=== PATIENT | female | born 1995 | race Caucasian/White ===

== ENCOUNTER → 2022-07-16 | Outpatient (CLI) | payer BC ==
--- NOTE | 2022-07-16 18:24 | CT ---
EXAMINATION TYPE: CT abdomen pelvis w con DATE OF EXAM: 07/16/2022 HISTORY: left side abd pain CT DLP: 503.2mGycm Automated Exposure Control for Dose Reduction was Utilized. CONTRAST: CT scan of the abdomen and pelvis is performed with IV Contrast, patient injected with 100m l mL of Isovue 300. COMPARISON: None. FINDINGS: LUNG BASES: No significant abnormality is appreciated. LIVER/GB: No significant abnormality is appreciated. PANCREAS: No significant abnormality is seen. SPLEEN: No significant abnormality is seen. ADRENALS: No significant abnormality is seen. KIDNEYS: No significant abnormality is seen. BOWEL: No significant abnormality is seen. Colonic stool volume is noted to the prominent. UTERUS/ADNEXA/CUL-DE-SAC: Uterus is anteverted with IUD in place. Small volume of simple appearing cu l-de-sac fluid, likely physiologic. LYMPH NODES: No greater than 1cm abdominal or pelvic lymph nodes are appreciated. OSSEOUS STRUCTURES: No significant abnormality is seen. VASCULAR: No significant additional abnormality is seen. IMPRESSION: No acute process, although colonic stool volume is prominent.
== END | disposition home or self-care (01) ==
LOC: RADCTMAIN 15:55
PROVIDERS: ATTEND Family Medicine
DX: R10.9 Unspecified abdominal pain (principal)
CPT/HCPCS: 74177; Q9967

== ENCOUNTER → 2023-04-02 | Outpatient (CLI) | payer BC ==
--- NOTE | 2023-04-02 07:45 | USB ---
Reason for Exam: Clinical finding. Technique: Method: Targeted. Findings: The upper outer quadrant of the right breast, the area of palpable concern of the right breast and the axilla of the right breast were scanned. At the palpable abnormality 10:00 position 10 cm from nipple there is a oval hypoechoic area measuring 0.7 x 0 point for by 0.4 cm. This has a fatty hilum with vascular flow. Findings are compatible with a lymph node. Clinical management is recommended. Follow up exams can be performed if there is clinical change. In the absence of suspicious clinical findings, screening mammography performed on schedule. Overall Assessment: Benign, BI-RAD 2 Management: Screening Mammogram of both breasts at age 42. A clinical breast exam by your physician is recommended on an annual basis and results should be correlated with mammographic findings. This exam should not preclude additional follow-up of suspicious palpable abnormalities. Results were given to the patient verbally at the time of exam. Electronically signed and approved by: Duong Montero D.O. Radiologis
== END | disposition home or self-care (01) ==
LOC: RADUSWWP 07:19
PROVIDERS: ATTEND Family Medicine
DX: N63.10 Unspecified lump in the right breast, unspecified quadrant (principal)

== ENCOUNTER → 2023-06-09 | Outpatient (CLI) | payer BC ==
--- NOTE | 2023-06-09 17:24 | US ---
EXAMINATION TYPE: Transabdominal DATE OF EXAM: 06/09/2023 4:25 PM COMPARISON: NONE CLINICAL INDICATION: Female, 28 years old with history of O99.891 OTH DISEASES AND CONDITIONS COMPLIC ATING P; Cramping; HX KIMBERLY EXAM PERFORMED: Transvaginal (TV) and Transabdominal (TA) EXAM MEASUREMENTS: GESTATIONAL AGE / DATING Physician Established: (7 weeks/6 days) EDC: 01/20/2024 Dates by LMP: ( weeks/ days) EDC: Dates by First Scan: (7 weeks/6 days) EDC: 01/20/2024 Dates by Current Scan for: (8 weeks/1 days) EDC: 01/18/2024 MATERNAL ANATOMY Uterus: 9.9 x 5.7 x 6.7 cm Right Ovary: 3.7 x 1.5 x 3.0 cm Left Ovary: 2.4 x 1.2 x 1.1 cm Post CDS / Adnexa: WNL Presence of free fluid: WNL Presence of corpus luteal cyst: Right ovary Presence of subchorionic bleed: 1.8 x 1.0 x 1.5 cm left uterine fundus GESTATION / SURVEY CRL: 1.61 (8 weeks/1 days) MSD: NA ( weeks/ days) Yolk Sac (normal less than 6mm): 0.3 Heart Rate: 160 bpm Rhythm: Normal IUP: Viable IUP Nuchal Translucency 10-14wks (normal less than 3mm): NA Age Appropriate Anatomy Cord Insertion: NA Limbs: NA Calvarium: NA Date of LMP: March Beta HcG (if available): Not available at this time IMPRESSION: Single live intrauterine with calculated ultrasound age of 8 weeks 1 day crown rump length.
== END | disposition home or self-care (01) ==
LOC: RADUSWWP 16:03
PROVIDERS: ATTEND Family Medicine
DX: O99.891 Other specified diseases and conditions complicating pregnancy (principal); Z3A.09 9 weeks gestation of pregnancy
CPT/HCPCS: 76801; 76817

== ENCOUNTER 2023-12-08 08:35 | Outpatient (CLI) | payer BC ==
[2023-12-08 10:10] VITALS: BP 129/76; PULSE 78; RESP 16; TEMP 98.1
--- NOTE | 2024-01-16 02:04 | P.MSEPDOC ---
Presenting Problems - Arrival Data Date of Arrival on Unit: 12/08/23 Time of Arrival on Unit: 08:35 Mode of Transport: Ambulatory - Complaint OB-Reason for Admission/Chief Complaint: Elevated Blood Pressure Comment: bp at home 160/100 Medical History - Information : 2 Para: 1 Term: 1 : 0 Abortions: Spontaneous or Elective: 0 Number of Living Children: 1 - Gestational Age Gestational Age by JUAN (wks/days): 33 Weeks and 3 Days Review of Systems - Review of Systems Constitutional: No problems Breast: No problems ENT: No problems Cardiovascular: No problems Respiratory: No problems Gastrointestinal: No problems Genitourinary: No problems Musculoskeletal: No problems Neurological: No problems Skin: No problems Vital Signs - Temperature Temperature: 98.1 F Temperature Source: Temporal Artery Scan - Pulse Right Sitting Pulse Rate: 78 Pulse Assessment Method: Automatic Cuff - Respirations Respiratory Rate: 16 Oxygen Delivery Method: Room Air O2 Sat by Pulse Oximetry: 98 - Blood Pressure Right Arm Blood Pressure: 129/76 Blood Pressure Mean: 93 Blood Pressure Source: Automatic Cuff Medical Screen Scoring - Cervical Exam Dilation (cm): 0 Membranes: Intact - Uterine Contractions Intensity: Mild Resting: Soft to palpation - Assessment - Baby A Baseline FHR: 140 Heart Rate - NICHD Category: Category I (Normal) NST: Reactive Physician Notification - Physician Notified Physician Notified Date: 12/08/23 Physician Notified Time: 09:44 Physician: Sergio Gonzalez New Order Received: Yes (d/c home if cervix is closed) Maternal Triage Index - Urgent/Priority 2 Urgent Priority 2: Yes Provider Notified: Sergio Gonzalez Provider Notified Time: 09:44 Criteria Met for Priority 2: pt c/o elevated bp at home, 160/100, no s/sx preeclampsia, all bps in triage wnl, irregular contractions noted on monitor, pt denies pain or fleeing contractions, but states sometimes feels tightening in abd. vag exam closed/thick/high Disposition - Disposition OB Disposition: Discharge to home Discharge Date: 12/08/23 Discharge Time: 09:52 I agree with the RN Medical Screening Exam: Yes Physician's MSE Comment: I have neither seen nor examined the patient. Case reviewed; plan agreed upon as documented in EMR&OBIX.: Yes Diagnosis: RELATED CONDITIONS, UNSPECIFIED, THIRD TRIMESTER
== END 2023-12-08 09:52 | disposition home or self-care (01) ==
LOC: FBPOP 08:35
PROVIDERS: ATTEND Obstetrics & Gynecology
CPT/HCPCS: 59025; 99213

== ENCOUNTER 2023-12-14 14:32 | Outpatient (CLI) | payer BC ==
[2023-12-14] MEDS: BETAMET ACET-BETAMETH SOD PHOS 6 MG/ML MDV IM SCH (15:13)
[2023-12-14 15:27] LABS: Basophils % (A) 0 %; Eosinophils # (A) 0.1 k/uL (0-0.7); Eosinophils % (A) 1 %; Lymphocytes # (A) 1.2 k/uL (1.0-4.8); Lymphocytes % (A) 13 %; MCHC 33.4 g/dL (31.0-37.0); MCV 89.8 fL (80.0-100.0); Mean Platelet Volume 8.6; Monocytes # (A) 0.4 k/uL (0-1.0); Monocytes % (A) 4 %; Neutrophils # (A) 7.8 k/uL (1.3-7.7); Neutrophils % (A) 81 %; Platelet Count 262 k/uL (150-450); RBC 4.01 m/uL (3.80-5.40); RDW 12.5 % (11.5-15.5); WBC 9.7 k/uL (3.8-10.6)
[2023-12-14 15:56] LABS: ALT 10 U/L (4-34); AST 18 U/L (14-36); African American GFR (CKD) >90 (>60 ml/min/1.73 sqM); Blood Urea Nitrogen 10 mg/dL (7-17); LDH 186 U/L (120-246); Non-African American GFR(CKD) >90 (>60 ml/min/1.73 sqM); Uric Acid 3.2 mg/dL (3.7-7.4)
[2023-12-14 18:51] VITALS: BP 140/73; PULSE 72; RESP 17; TEMP 97.3
== END 2023-12-14 16:40 | disposition home or self-care (01) ==
LOC: FBPOP 14:32
PROVIDERS: ATTEND Obstetrics & Gynecology
DX: O13.9 Gestational [pregnancy-induced] hypertension without significant proteinuria, unspecified trimester (principal); Z3A.34 34 weeks gestation of pregnancy
CPT/HCPCS: 59025; 99215; 96372; 36415; 82565; 83615; 84450; 84460; 84520; 84550; 85025; J0702

== ENCOUNTER 2023-12-15 15:16 | Outpatient (CLI) | payer BC ==
[2023-12-15 15:24] VITALS: BP 146/80; PULSE 69; RESP 18; TEMP 97.6
[2023-12-15] MEDS: BETAMET ACET-BETAMETH SOD PHOS 6 MG/ML MDV IM SCH (15:33)
--- NOTE | 2024-01-16 02:20 | P.MSEPDOC ---
Presenting Problems - Arrival Data Date of Arrival on Unit: 12/15/23 Time of Arrival on Unit: 15:16 Mode of Transport: Ambulatory - Complaint OB-Reason for Admission/Chief Complaint: Celestone Injection Comment: second dose Medical History - Information : 2 Para: 1 Term: 1 : 0 Abortions: Spontaneous or Elective: 0 Number of Living Children: 1 - Gestational Age Gestational Age by JUAN (wks/days): 34 Weeks and 3 Days Review of Systems - Review of Systems Constitutional: No problems Breast: No problems ENT: No problems Cardiovascular: No problems Respiratory: No problems Gastrointestinal: No problems Genitourinary: No problems Musculoskeletal: No problems Neurological: No problems Skin: No problems Vital Signs - Temperature Temperature: 97.6 F Temperature Source: Temporal Artery Scan - Pulse Pulse Oximetery Pulse Rate: 69 Pulse Assessment Method: Pulse Oximetry - Respirations Respiratory Rate: 18 Oxygen Delivery Method: Room Air O2 Sat by Pulse Oximetry: 99 - Blood Pressure Right Arm Blood Pressure: 146/80 Blood Pressure Mean: 102 Blood Pressure Source: Automatic Cuff Medical Screen Scoring - Cervical Exam Membranes: Intact Physician Notification - Physician Notified Physician Notified Date: 12/15/23 Physician Notified Time: 15:46 Physician: Sergio Gonzalez Order Received: Yes (discharge home.) Maternal Triage Index - Maternal Triage Index Presenting for scheduled procedure w/no complaint: No - Stat/Priority 1 Stat Priority 1: No - Urgent/Priority 2 Urgent Priority 2: No - Prompt/Priority 3 Prompt Priority 3: No - Non-Urgent/Priority 4 Non-Urgent Priority 4: No - Scheduled/Requesting Priority 5 Scheduled/Requesting Priority 5: Yes Criteria Met for Priority 5: second dose of celestone IM injection. Disposition - Disposition OB Disposition: Discharge to home Discharge Date: 12/15/23 Discharge Time: 15:46 I agree with the RN Medical Screening Exam: Yes Physician's MSE Comment: I have neither seen nor examined the patient. Case reviewed; plan agreed upon as documented in EMR&OBIX.: Yes Diagnosis: RELATED CONDITIONS, UNSPECIFIED, THIRD TRIMESTER
== END 2023-12-15 15:46 | disposition home or self-care (01) ==
LOC: FBPOP 15:16
PROVIDERS: ATTEND Obstetrics & Gynecology
CPT/HCPCS: 96372; 99213

== ENCOUNTER 2023-12-19 01:51 | Inpatient (IN) | payer BC ==
[2023-12-19] MEDS ORDERED: TRANEXAMIC 1,000 MG/100ML-NACL 1,000 MG in EMPTY BAG 1 BAG IV PRN (02:29)
[2023-12-19] MEDS ORDERED: OXYTOCIN 10 UNIT/ML 1 ML VIAL IM PRN (02:29)
[2023-12-19] MEDS ORDERED: miSOPROStoL 200 MCG TAB PO PRN (02:29)
[2023-12-19] MEDS ORDERED: LIDOCAINE 0.5% (PF) 5 MG/ML (50 ML SDV) SQ PRN (02:29)
[2023-12-19] MEDS ORDERED: TERBUTALINE 1 MG/ML VIAL SQ PRN (02:29)
[2023-12-19] MEDS ORDERED: METHYLERGONOVINE 0.2 MG/ML 1 ML AMP IM PRN (02:29)
[2023-12-19] MEDS ORDERED: miSOPROStoL 200 MCG TAB RECTAL PRN (02:29)
[2023-12-19] MEDS ORDERED: CARBOPROST TROMETHAMINE 250 MCG/ML 1 ML AMP IM PRN (02:29)
[2023-12-19] MEDS: LACTATED RINGERS 1,000 ML IV SCH (02:41)
[2023-12-19] MEDS: PENICILLIN G POTASSIUM 5,000,000 UNIT in DEXTROSE 5% IN WATER 100 ML IVPB ONE (02:56)
[2023-12-19 03:03] LABS: Basophils % (A) 0 %; Eosinophils # (A) 0.2 k/uL (0-0.7); Eosinophils % (A) 2 %; HCT 35.4 % (34.0-46.0); HGB 11.9 gm/dL (11.4-16.0); Lymphocytes % (A) 17 %; MCH 30.4 pg (25.0-35.0); MCHC 33.6 g/dL (31.0-37.0); MCV 90.6 fL (80.0-100.0); Mean Platelet Volume 8.8; Monocytes # (A) 0.5 k/uL (0-1.0); Monocytes % (A) 4 %; Neutrophils # (A) 8.5 k/uL (1.3-7.7); Neutrophils % (A) 75 %; Platelet Count 262 k/uL (150-450); RBC 3.91 m/uL (3.80-5.40); RDW 12.4 % (11.5-15.5); WBC 11.4 k/uL (3.8-10.6)
[2023-12-19 03:27] LABS: INR 0.8 (<1.2); Partial Thromboplastin Time 23.1 sec (22.0-30.0); Prothrombin Time 9.3 sec (10.0-12.5)
[2023-12-19] MEDS ORDERED: fentaNYL (PF) 50 MCG/ML 5 ML AMP ONE (05:06)
[2023-12-19] MEDS ORDERED: SODIUM CHLORIDE 0.9% 250 ML BAG ONE (05:06)
[2023-12-19] MEDS ORDERED: ROPIVACAINE 5 MG/ML 30 ML VIAL ONE (05:06)
[2023-12-19] MEDS: ACETAMINOPHEN TAB 500 MG TAB PO PRN (06:01)
[2023-12-19] MEDS: OXYTOCIN 30 UNITS/500 ML NS 30 UNIT in SALINE 1 500ML.BAG IV SCH (06:38)
[2023-12-19] MEDS: PENICILLIN G POTASSIUM 2,500,000 UNIT in DEXTROSE 5% IN WATER 100 ML IVPB SCH (07:10)
--- NOTE | 2023-12-19 08:17 | P.HPOB ---
History of Present Illness H&P Date: 12/19/23 Chief Complaint: Leaking of fluid Ms. Chiang is a 28 year old at 35 weeks and 0 days with EDC of 01/23/2024 by LMP consistent with 9 week US who presents with leaking of fluid and positive amnisure in triage. She is also jesus and cervical exam is 3/80/-2. The has been complicated by gestational hypertension for which she was started on Labetalol 100mg BID. She has also undergone weekly surveillance throughout the third trimester. The patient did receive a dose of BMZ approximately 4 weeks ago for labor. Obstetric history: 1 PTVD at 36 weeks, indued for gestational hypertension work-up: blood type A positive, antibody screen negative, rubella immune, VDRL non-reactive, HBsAg negative, HIV negative, HCV non-reactive, gonorrhea negative, chlamydia negative. 1 hour GTT not completed. GBS unknown given she is only 35 weeks. Past Medical History Additional Past Medical History / Comment(s): hashimotos History of Any Multi-Drug Resistant Organisms: None Reported Additional Past Surgical History / Comment(s): neck sugrery x2 for benign tumor Past Anesthesia/Blood Transfusion Reactions: No Reported Reaction Past Psychological History: No Psychological Hx Reported Smoking Status: Never smoker Past Drug Use History: None Reported Medications and Allergies Home Medications Medication Instructions Recorded Confirmed Type Aspirin 81 mg PO DAILY 12/08/23 12/19/23 History FLUoxetine HCL [PROzac] 20 mg PO DAILY 12/08/23 12/19/23 History Levothyroxine Sodium 25 mcg PO DAILY 12/08/23 12/19/23 History Vit No.179/Iron/Folic 1 tab PO DAILY 12/08/23 12/19/23 History [ Tablet] Labetalol [Trandate] 100 mg PO BID 12/15/23 12/19/23 History Allergies Allergy/AdvReac Type Severity Reaction Status Date / Time No Known Allergies Allergy Verified 12/15/23 15:21 Exam Vital Signs Temp Pulse Resp BP Pulse Ox 12/19/23 02:29 96.6 F L 97 16 146/77 97 12/19/23 01:52 96.6 F L 99 16 146/77 97 Intake and Output 12/18/23 12/19/23 12/19/23 22:59 06:59 14:59 Other: # Voids 1 Weight 99.79 kg Focused physical exam is performed. This is a healthy-appearing in no apparent distress. Breathing is non-labored. Abdomen is gravid and non-tender. Most recent cervical exam is 5/80/-2 per OB RN. Extremities non-tender and non-edematous. heart tones are Category I and tocometer is graphing contractions every 2-4 minutes. Results Result Diagrams: 12/19/23 02:30 Abnormal Lab Results - Last 24 Hours (Table) 12/19/23 12/19/23 Range/Units 02:30 02:30 WBC 11.4 H (3.8-10.6) k/uL Neutrophils # 8.5 H (1.3-7.7) k/uL PT 9.3 L (10.0-12.5) sec Assessment and Plan Assessment: 28 year old at 35 weeks and 0 days with PPROM, in labor Plan: Admit, clear liquid diet, epidural prn, pitocin prn if contractions space out, PCN G for GBS ppx, s/p BMZ ~4 weeks ago for PTL, continuous EFM and tocometer. Anticipate vaginal delivery.
[2023-12-19] MEDS ORDERED: LIDOCAINE (PF) 10 MG/ML 2 ML VIAL SQ PRN (09:34)
[2023-12-19] MEDS ORDERED: SUCROSE 24% 2 ML AMP PO PRN (09:34)
[2023-12-19] MEDS ORDERED: ACETAMINOPHEN 40 MG/1.25 ML ORAL.SYRG PO PRN (09:34)
[2023-12-19] MEDS ORDERED: EPINEPHrine 1 MG/ML (MDV) 30 ML VIAL TOPICAL PRN (09:34)
--- NOTE | 2023-12-19 09:34 | P.PROBDLV ---
Vaginal Delivery Note - . Vaginal Delivery Note: DATE OF SERVICE: 12/19/2023 PROCEDURE: Normal Vaginal Delivery ATTENDING: Dr. Isabelle Zamudio MD ESTIMATED BLOOD LOSS: 150 mL FINDINGS: VMI, Apgars 9/9. Weight 6 pounds and 3 ounces (2815 grams) PROCEDURE: Ms. Chiang is a 28 year old at 35 weeks presenting to labor and delivery for PPROM. The has been complicated by labor for which she received steroids approximately 1 month ago. For further details, please review the admitting H&P. PCN G was given for GBS ppx. The patient was completely dilated at 854. She pushed effectively with Category I heart tones. A viable male infant was delivered at 916. The was placed on the maternal abdomen and bulb suctioned. The was noted to be spontaneously crying. Cord was clamped and cut after a 60-second delay. The infant was handed off to the pediatric team. Placenta was delivered whole with gentle cord traction at 918. Oxytocin was started to facilitate uterine tone. Uterine fundus was found to be firm and below the umbilicus upon fundal massage. Thorough examination of the cervix, vagina, periurethral area, and perineum revealed no lacerations. The patient is stable and allowed to begin the bonding process.
[2023-12-20] MEDS: IBUPROFEN 600 MG TAB PO PRN (05:40)
--- NOTE | 2023-12-20 08:56 | P.PNOBGVD ---
Subjective - Subjective Principal diagnosis: s/p vaginal delivery Interval history: The patient is doing well this morning and had no acute events overnight. She has no complaints this morning. She reports minimal lochia, passing flatus, voiding without difficulty, ambulating, and eating/drinking without nausea or vomiting. She is her without difficulty. She denies chest pain, shortness of breathing, fevers, or chills overnight. She denies pain or swelling in the legs. Patient reports: Reports appetite normal, Reports voiding normally, Reports pain well controlled, Reports ambulating normally : doing well, other (in nursery for prematurity) Objective - Latest Vital Signs Latest vital signs: Vital Signs Temp Pulse Resp BP 12/20/23 08:00 98.2 F 85 16 138/88 12/20/23 03:57 98.3 F 77 18 120/58 12/19/23 21:37 98.6 F 77 18 128/78 12/19/23 13:37 98.2 F 92 16 143/75 12/19/23 11:37 65 16 141/74 12/19/23 11:21 65 16 133/75 12/19/23 11:04 77 16 144/78 12/19/23 10:52 65 16 139/73 12/19/23 10:37 65 16 134/61 12/19/23 10:22 68 16 136/76 12/19/23 10:07 72 16 132/59 12/19/23 09:52 71 16 144/67 12/19/23 09:37 67 16 139/67 - Exam Extremities: Present: normal Abdomen: Present: normal appearance, soft Uterus: Present: normal, firm Assessment and Plan Assessment: 28 year old now PPD#1 s/p after PPROM Plan: 1. . Meeting all milestones appropriately. 2. Viable male . In nursery for prematurity. Will need circumcision once cleared by peds. 3. Scattered elevated BPs 140s/90. Continue to monitor. Dispo: Anticipate discharge home tomorrow if BPs stable.
[2023-12-20] MEDS ORDERED: HYDROCORTISONE 2.5% RECTAL CREAM 30 GM TUBE RECTAL PRN (09:56)
[2023-12-20] MEDS ORDERED: LANOLIN CREAM 1 GM TUBE TOPICAL PRN (09:56)
[2023-12-20] MEDS ORDERED: diphenhydrAMINE 25 MG CAP PO PRN (09:56)
[2023-12-20] MEDS ORDERED: BENZOCAINE/MENTHOL SPRAY 1 GM/SPRAY AEROSOL TOPICAL PRN (09:56)
[2023-12-20] MEDS ORDERED: ACETAMINOPHEN TAB 325 MG TAB PO PRN (09:56)
[2023-12-20] MEDS ORDERED: SIMETHICONE 80 MG CHEWABLE PO PRN (09:56)
[2023-12-20] MEDS ORDERED: diphenhydrAMINE 50 MG CAP PO PRN (09:56)
[2023-12-20] MEDS ORDERED: diphenhydrAMINE 50 MG/ML 1 ML VIAL IVP PRN ×2 (09:56)
[2023-12-20] MEDS ORDERED: ZOLPIDEM 5 MG TAB PO PRN (09:56)
[2023-12-20] MEDS: SENNOSIDES-DOCUSATE SODIUM 1 EACH TAB PO SCH (19:52)
[2023-12-21 07:00] LABS: Basophils % (A) 0 %; Eosinophils # (A) 0.4 k/uL (0-0.7); Eosinophils % (A) 5 %; HCT 35.5 % (34.0-46.0); HGB 11.7 gm/dL (11.4-16.0); Lymphocytes # (A) 2.2 k/uL (1.0-4.8); Lymphocytes % (A) 25 %; MCH 30.1 pg (25.0-35.0); MCHC 32.9 g/dL (31.0-37.0); MCV 91.6 fL (80.0-100.0); Mean Platelet Volume 8.4; Monocytes # (A) 0.4 k/uL (0-1.0); Monocytes % (A) 5 %; Neutrophils # (A) 5.5 k/uL (1.3-7.7); Neutrophils % (A) 63 %; Platelet Count 273 k/uL (150-450); RBC 3.88 m/uL (3.80-5.40); RDW 12.4 % (11.5-15.5); WBC 8.8 k/uL (3.8-10.6)
[2023-12-21 08:08] VITALS: BP 127/80; PULSE 78; RESP 15; TEMP 98.3
--- NOTE | 2023-12-21 08:37 | P.DS ---
Providers Date of admission: 12/19/23 02:18 Expected date of discharge: 12/21/23 Attending physician: Sergio Gonzalez Primary care physician: Stated None - Discharge Diagnosis(es) (1) Normal vaginal delivery Current Visit: Yes Status: Acute Hospital Course: Patient is a 28-year-old 2 para 0-1-0-1 admitted at 35-0/7 weeks by good dating parameters. She is admitted with documented spontaneous rupture of membranes with clear fluid. She was also found to be in early labor. Her was complicated by gestational hypertension for which she was on labetalol 100 mg twice daily and for which she had reassuring weekly testing. She did have an episode of contractions leading to 2 doses of steroids at approximately 31 weeks of . On labor and delivery, she had antibiotic prophylaxis started for unknown group B strep status. She ultimately progressed to complete and pushed to a normal spontaneous vaginal delivery of a viable 6 pound 3 ounce baby boy with Apgars of 9 at 1 minute and 9 at 5 minutes. Her course was unremarkable with vital signs remaining stable and her temperature was afebrile throughout. She was deemed stable for discharge on day #2 and was discharged home to follow-up in the office in 6 weeks time routinely. Discharge instructions included calling for any significantly increased bleeding or foul-smelling lochia, significantly increased fever or abdominal pain, perineal complaints, breast complaints, or anything else that concerned her. She was additionally instructed to have nothing in the vagina to include intercourse over the next 6 weeks time. She understood her instructions and agrees to follow-up as noted above. Discharge medications included contin ued vitamins as she has opted to breast-feed. She was to use [id number] analgesic pain medications. She was to continue her labetalol 100 mg twice daily. Maternal blood type is a positive and rubella status is immune. Procedures: #1. Antibiotic prophylaxis #2. Normal spontaneous vaginal delivery Patient Condition at Discharge: Stable Plan - Discharge Summary New Discharge Prescriptions: No Action Aspirin 81 mg PO DAILY Vit No.179/Iron/Folic [ Tablet] 1 tab PO DAILY FLUoxetine HCL [PROzac] 20 mg PO DAILY Labetalol [Trandate] 100 mg PO BID Levothyroxine Sodium 25 mcg PO DAILY Discharge Medication List Aspirin 81 mg PO DAILY 12/08/23 [History] FLUoxetine HCL [PROzac] 20 mg PO DAILY 12/08/23 [History] Levothyroxine Sodium 25 mcg PO DAILY 12/08/23 [History] Vit No.179/Iron/Folic [ Tablet] 1 tab PO DAILY 12/08/23 [History] Labetalol [Trandate] 100 mg PO BID 12/15/23 [History] Follow up Appointment(s)/Referral(s): Sergio Gonzalez MD [STAFF PHYSICIAN] - 01/31/24 1:45 pm Discharge Disposition: HOME SELF-CARE
== END 2023-12-21 15:30 | disposition home or self-care (01) | DRG 807 ==
LOC: FBPOP 01:51 → 4FBP 02:18
PROVIDERS: ADMIT Obstetrics & Gynecology; ATTEND Obstetrics & Gynecology
PROC: 10E0XZZ Delivery of Products of Conception, External Approach (ICD-10-PCS; principal; 2023-12-19)
DX: O42.013 Preterm premature rupture of membranes, onset of labor within 24 hours of rupture, third trimester (principal); O13.4 Gestational [pregnancy-induced] hypertension without significant proteinuria, complicating childbirth; O99.284 Endocrine, nutritional and metabolic diseases complicating childbirth; E06.3 Autoimmune thyroiditis; Z79.899 Other long term (current) drug therapy; Z79.82 Long term (current) use of aspirin; Z79.890 Hormone replacement therapy; Z28.310 Unvaccinated for COVID-19; Z3A.35 35 weeks gestation of pregnancy; Z37.0 Single live birth
CPT/HCPCS: 59025; 84112; 85025; 85610; 85730; 86850; 86900; 86901; 99213

== ENCOUNTER 2023-12-22 10:28 | Outpatient (CLI) | payer BC ==
[2023-12-22 11:07] LABS: Appearance,Urine Clear (Clear); Bilirubin,Urine Negative (Negative); Blood,Urine Small (Negative); Color,Urine Light Yellow; Glucose,Urine (UA) Negative (Negative); Ketones,Urine Negative (Negative); Leukocyte Esterase,Urine Negative (Negative); Mucus,Urine Few /hpf; Nitrite,Urine Negative (Negative); PH, Urine 6.5 (5.0-8.0); Protein,Urine Negative (Negative); RBC,Urine 1 /hpf (0-5); Squamous Epithelial Cell,Urine 1 /hpf (0-4); Urobilinogen,Urine <2.0 mg/dL (<2.0); WBC,Urine 2 /hpf (0-5)
[2023-12-22 12:10] LABS: Basophils % (A) 0 %; Eosinophils # (A) 0.3 k/uL (0-0.7); Eosinophils % (A) 3 %; HCT 35.8 % (34.0-46.0); HGB 11.8 gm/dL (11.4-16.0); Lymphocytes # (A) 1.1 k/uL (1.0-4.8); Lymphocytes % (A) 11 %; MCHC 33.1 g/dL (31.0-37.0); MCV 90.7 fL (80.0-100.0); Mean Platelet Volume 7.9; Monocytes # (A) 0.2 k/uL (0-1.0); Monocytes % (A) 2 %; Neutrophils # (A) 8.1 k/uL (1.3-7.7); Neutrophils % (A) 83 %; Platelet Count 299 k/uL (150-450); RBC 3.95 m/uL (3.80-5.40); RDW 12.2 % (11.5-15.5); WBC 9.8 k/uL (3.8-10.6)
[2023-12-22 12:18] LABS: ALT 36 U/L (4-34); AST 37 U/L (14-36); African American GFR (CKD) >90 (>60 ml/min/1.73 sqM); Blood Urea Nitrogen 10 mg/dL (7-17); LDH 306 U/L (120-246); Non-African American GFR(CKD) >90 (>60 ml/min/1.73 sqM)
== END 2023-12-22 12:54 | disposition home or self-care (01) ==
LOC: FBPOP 10:28
PROVIDERS: ATTEND Obstetrics & Gynecology
CPT/HCPCS: 81001; 82565; 83615; 84450; 84460; 84520; 84550; 85025

== ENCOUNTER 2023-12-23 09:25 | Outpatient (CLI) | payer BC ==
[2023-12-23 10:54] LABS: Basophils % (A) 0 %; Eosinophils # (A) 0.2 k/uL (0-0.7); Eosinophils % (A) 2 %; HCT 34.9 % (34.0-46.0); HGB 11.8 gm/dL (11.4-16.0); Lymphocytes # (A) 1.2 k/uL (1.0-4.8); Lymphocytes % (A) 14 %; MCH 30.1 pg (25.0-35.0); MCHC 33.8 g/dL (31.0-37.0); MCV 89.1 fL (80.0-100.0); Mean Platelet Volume 8.5; Monocytes # (A) 0.2 k/uL (0-1.0); Monocytes % (A) 3 %; Neutrophils # (A) 6.8 k/uL (1.3-7.7); Neutrophils % (A) 81 %; Platelet Count 281 k/uL (150-450); RBC 3.92 m/uL (3.80-5.40); RDW 12.5 % (11.5-15.5); WBC 8.4 k/uL (3.8-10.6)
[2023-12-23 11:01] LABS: Appearance,Urine Clear (Clear); Bilirubin,Urine Negative (Negative); Blood,Urine Negative (Negative); Color,Urine Light Yellow; Glucose,Urine (UA) Negative (Negative); Ketones,Urine 1+ (Negative); Leukocyte Esterase,Urine Negative (Negative); Nitrite,Urine Negative (Negative); PH, Urine 5.5 (5.0-8.0); Protein,Urine Negative (Negative); Specific Gravity,Urine 1.019 (1.001-1.035); Urobilinogen,Urine <2.0 mg/dL (<2.0)
[2023-12-23 11:14] LABS: ALT 36 U/L (4-34); AST 32 U/L (14-36); African American GFR (CKD) >90 (>60 ml/min/1.73 sqM); Blood Urea Nitrogen 11 mg/dL (7-17); LDH 284 U/L (120-246); Non-African American GFR(CKD) >90 (>60 ml/min/1.73 sqM); Uric Acid 5.9 mg/dL (3.7-7.4)
[2023-12-23 11:35] LABS: Creatinine,Urine Random 114.8 mg/dL; Protein/Creatinine Ratio,Urine 0.052
[2023-12-23 13:32] VITALS: BP 139/77; PULSE 103; RESP 16; TEMP 97.2
--- NOTE | 2024-01-16 02:24 | P.MSEPDOC ---
Presenting Problems - Arrival Data Date of Arrival on Unit: 12/23/23 Time of Arrival on Unit: 09:25 Mode of Transport: Ambulatory - Complaint OB-Reason for Admission/Chief Complaint: PIH Comment: Medical History - Information : 2 Para: 2 Term: 2 : 0 Abortions: Spontaneous or Elective: 0 Number of Living Children: 2 - Gestational Age Gestational Age by JUAN (wks/days): 35 Weeks and 4 Days - History Complications: Preeclampsia Comment: symtomatic, high pressures at home Review of Systems - Review of Systems Constitutional: No problems Breast: No problems ENT: No problems Cardiovascular: No problems Respiratory: No problems Gastrointestinal: No problems Genitourinary: No problems Musculoskeletal: No problems Neurological: Dizziness Skin: No problems Vital Signs - Temperature Temperature: 97.2 F Temperature Source: Temporal Artery Scan - Pulse Right Brachial Pulse Rate: 103 Pulse Assessment Method: Automatic Cuff - Respirations Respiratory Rate: 16 Oxygen Delivery Method: Room Air O2 Sat by Pulse Oximetry: 98 - Blood Pressure Right Arm Sitting Blood Pressure: 139/77 Blood Pressure Mean: 97 Blood Pressure Source: Automatic Cuff Physician Notification - Physician Notified Physician Notified Date: 12/23/23 Physician Notified Time: 10:08 Physician: Sergio Gonzalez New Order Received: Yes (Procardia script, d/c follow up in office next week) Maternal Triage Index - Urgent/Priority 2 Urgent Priority 2: Yes Provider Notified: Sergio Gonzalez Provider Notified Time: 10:08 Criteria Met for Priority 2: , pressures at home elevated, symptomatic Disposition - Disposition OB Disposition: Triage, Discharge to home Discharge Date: 12/23/23 Discharge Time: 11:57 I agree with the RN Medical Screening Exam: Yes Physician's MSE Comment: I have neither seen nor examined the patient. Case reviewed; plan agreed upon as documented in EMR&OBIX.: Yes Diagnosis: RELATED CONDITIONS, UNSPECIFIED, THIRD TRIMESTER
== END 2023-12-23 11:57 | disposition home or self-care (01) ==
LOC: FBPOP 09:25
PROVIDERS: ATTEND Obstetrics & Gynecology
CPT/HCPCS: 36415; 81003; 82565; 82570; 83615; 84156; 84450; 84460; 84520; 84550; 85025; 99215

== ENCOUNTER 2023-12-26 23:26 | Outpatient (CLI) | payer BC ==
[2023-12-27 00:18] VITALS: BP 143/88; PULSE 71; RESP 15; TEMP 96.4
--- NOTE | 2024-01-06 09:56 | P.MSEPDOC ---
Presenting Problems - Arrival Data Date of Arrival on Unit: 12/26/23 Time of Arrival on Unit: 23:23 Mode of Transport: Ambulatory - Complaint OB-Reason for Admission/Chief Complaint: Elevated Blood Pressure Comment: Patient states that she has been taking blood pressure at home and the last BP she had was 155/110. Patient is concerned with BP. Patient is seven day and taking medication for BP. Medical History - Gestational Age Gestational Age by JUAN (wks/days): 41 Weeks and 1 Days Review of Systems - Review of Systems Constitutional: No problems Breast: No problems ENT: No problems Cardiovascular: No problems Respiratory: No problems Gastrointestinal: No problems Genitourinary: No problems Musculoskeletal: No problems Neurological: No problems Skin: No problems Vital Signs - Temperature Temperature: 96.4 F Temperature Source: Temporal Artery Scan - Pulse Pulse Oximetery Pulse Rate: 71 Pulse Assessment Method: Automatic Cuff - Respirations Respiratory Rate: 15 Oxygen Delivery Method: Room Air O2 Sat by Pulse Oximetry: 99 - Blood Pressure Right Arm Blood Pressure: 143/88 Blood Pressure Mean: 106 Blood Pressure Source: Automatic Cuff Physician Notification - Physician Notified Physician Notified Date: 12/27/23 Physician Notified Time: 23:39 Physician: Pam Perez New Order Received: Yes - Notification Comment Comment: Dr. Perez aware of patient vital signs & medication for blood pressure. Patient presents with not other complaint other than she states she took her BP at home and is was 155/110. Patient when asked by RN denies any s/s of HTN. Dr. Perez is sending patient home. Maternal Triage Index - Urgent/Priority 2 Urgent Priority 2: Yes Provider Notified: Pam Perez Provider Notified Time: 23:39 Criteria Met for Priority 2: Patient arrived to triage stating her BP has been running high today diastolic in the 90's. Patient denies headache, denies vision changes. No edema present bilateral legs. - Prompt/Priority 3 Prompt Priority 3: Yes Criteria Met for Priority 3: Patient arrived to triage stating her BP has been running high today diastolic in the 90's. Patient denies headache, denies vision changes. No edema present bilateral legs. Disposition - Disposition OB Disposition: Discharge to home Discharge Date: 12/27/23 Discharge Time: 23:45 I agree with the RN Medical Screening Exam: Yes Case reviewed; plan agreed upon as documented in EMR&OBIX.: Yes Diagnosis: OTHER SPECIFIED COMPLICATIONS OF LABOR AND DELIVERY
== END 2023-12-26 23:45 | disposition home or self-care (01) ==
LOC: FBPOP 23:26
PROVIDERS: ATTEND Obstetrics & Gynecology Obstetrics
CPT/HCPCS: 99215

== ENCOUNTER → 2024-06-09 | Outpatient (CLI) | payer BC ==
--- NOTE | 2024-06-10 07:33 | US ---
EXAMINATION TYPE: US thyroid st tissue head/neck DATE OF EXAM: 06/09/2024 COMPARISON: NONE CLINICAL INDICATION: Female, 29 years old with history of R59.0 LOCALIZED ENLARGED LYMPH NODES; Palpa ble lumps left neck TECHNIQUE: Grayscale and color Doppler imaging of the thyroid gland. FINDINGS: GLAND SIZE: Right Lobe: 4.5 x 1.8 x 1.5 cm Overall Parenchyma: heterogeneous Left Lobe: 3.7 x 1.4 x 1.5 cm Overall Parenchyma: heterogeneous Isthmus Thickness: 0.5 cm NODULES RIGHT: # of nodules measured on right: 0 LEFT: # of nodules measured on left: 0 ISTHMUS: # of nodules measured in the isthmus: 0 Bilateral neck scanned, right neck - appears wnl, left neck - multiple superficial hypoechoic areas s een lateral neck and submandibular with largest measuring 1.0cm. Presumed small likely benign lymph nodes. Heterogenous normal size thyroid without suspicious nodules. IMPRESSION: As Above. 2017 ACR TI-RADS LEVEL: TI-RADS 1 - BENIGN: No FNA *Highest TI-RADS level nodule reported [email or web address] [facility], , 06/10/2024 7:30 AM
== END | disposition home or self-care (01) ==
LOC: RADUSWWP 16:32
PROVIDERS: ATTEND Family Medicine
DX: E04.2 Nontoxic multinodular goiter (principal); R59.0 Localized enlarged lymph nodes
CPT/HCPCS: 76536

== ENCOUNTER → 2024-06-16 | Outpatient (CLI) | payer BC ==
--- NOTE | 2024-06-17 18:18 | MR ---
EXAMINATION TYPE: MR brain/cspine wo DATE OF EXAM: 06/16/2024 2:35 PM COMPARISON: None. 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 COMPARISON: None FINDINGS: The veras-white junctions, ventricular system, and cisterns appear unremarkable. Age-appropriate cereb ral parenchymal volume. No FLAIR signal abnormalities. Midline structures show no abnormality. Diffus ion-weighted imaging shows no evidence of restricted diffusion. The susceptibility weighted images do not reveal any evidence for micro-hemorrhage. Accessory right parotid gland. Couple of left paraphar yngeal lymph nodes with largest measuring up to 7 mm. The bone marrow signal is within normal limits. The paranasal sinuses and globes are unremarkable. Alignment: The cervical vertebral bodies have preserved heights. Alignment is within normal limits gi adriel patient positioning. Bones: Bone signal is within normal limits. Cord: The spinal cord is unremarkable with regards to their signal intensity and morphology. Discs: Minimal multilevel disc desiccation. C2-C3: No significant disc pathology. The spinal canal is patent. No neural foraminal stenosis. C3-C4: No significant disc pathology. The spinal canal is patent. No neural foraminal stenosis. C4-C5: No significant disc pathology. The spinal canal is patent. Uncovertebral joint hypertrophy wi th minimal right neural foraminal stenosis. The left neural foramen is patent. C5-C6: No significant disc pathology. The spinal canal is patent. Uncovertebral joint hypertrophy wi th minimal right neural foraminal stenosis. The left neural foramen is patent. C6-C7: No significant disc pathology. The spinal canal is patent. No neural foraminal stenosis. C7-T1: No significant disc pathology. The spinal canal is patent. No neural foraminal stenosis. Additional 0.5 cm lymph node anterior to the left sternocleidomastoid muscle. IMPRESSION: 1. No evidence of intracranial mass or acute/subacute infarct. 2. No evidence for disc herniation or significant spinal canal stenosis. 3. Minimal multilevel uncovertebral joint hypertrophy. [facility], , 06/17/2024 6:16 PM
== END | disposition home or self-care (01) ==
LOC: RADMRIMAIN 13:40
PROVIDERS: ATTEND Family Medicine
DX: M54.12 Radiculopathy, cervical region (principal); G43.909 Migraine, unspecified, not intractable, without status migrainosus
CPT/HCPCS: 70551; 72141